=== PATIENT | female | born 1995 | race African-American/Black ===

== ENCOUNTER 2018-03-11 21:45 | Emergency (ER) | payer BC ==
[~2018-03-11] VITALS: Ht 162.6 cm; Wt 59.2 kg
[2018-03-11 22:05] VITALS: TEMP 36.9; Ht 162.6 cm; Wt 59.2 kg
[2018-03-11] MEDS ORDERED: ONDANSETRON INJ 2 MG/ML 2 ML VIAL IV STA (22:16)
[2018-03-11] MEDS ORDERED: ONDANSETRON INJ 2 MG/ML 2 ML VIAL ONE (22:18)
[2018-03-11] MEDS ORDERED: SODIUM CHLORIDE 0.9% 1000ML 2,000 ML IV STA (22:50)
[2018-03-11] MEDS ORDERED: HYDROmorphone INJ 0.5 MG/0.5 ML SYR IV STA (23:09)
[2018-03-11 23:10] LABS: BASO % 0.3 %; BASO ABS # 0.02 K/uL (0-0.2); EOS % 1.9 %; EOS ABS # 0.11 K/uL (0-0.5); HEMATOCRIT 38.7 % (37-47); HEMOGLOBIN 13.4 g/dL (12.0-16.0); IG# 0.01 K/uL (0.00-0.02); LYMPH % 15.3 %; MEAN CELL VOLUME 92.8 fL (80-100); MEAN CORPUSCULAR HEMOGLOBIN 32.1 pg (25-34); MEAN CORPUSCULAR HGB CONC 34.6 g/dl (32-36); MEAN PLATELET VOLUME 10.3 fL (7.4-10.4); MONO % 2.9 %; MONO ABS # 0.17 K/uL (0.11-0.59); NEUT % 79.4 %; NEUT ABS # 4.68 K/uL (1.4-6.5); PLATELET COUNT 267 K/uL (130-400); RED CELL DISTRIBUTION WIDTH CV 12.1 % (11.5-14.5); WHITE BLOOD COUNT 5.89 K/uL (4.8-10.8)
[2018-03-11] MEDS ORDERED: ETON1IMP2 (23:13)
[2018-03-11] MEDS ORDERED: IBUP-1050 PO (23:13)
[2018-03-11 23:29] LABS: ALBUMIN 3.7 gm/dl (3.4-5.0); CREATININE 0.89 mg/dl (0.60-1.20); POTASSIUM 3.7 mmol/L (3.5-5.1)
[2018-03-11 23:32] LABS: TOTAL PROTEIN 8.2 gm/dl (6.4-8.2)
--- NOTE | 2018-03-11 23:56 | EMERGENCY ROOM VISIT NOTE ---
History Report prepared by Diamondibabeba: Dylan De La Fuente Under the Supervision of: Dr. Lety Armenta M.D. First contact with patient: 22:49 Chief Complaint: ABDOMINAL PAIN Stated Complaint: SEVERE STOMACH PAINS, VOMITING History of Present Illness The patient is a 22 year old female who presents to the Emergency Room with complaints of constant abdominal pain that started this morning. She rates her pain as an 8/10 in severity. She reports that she developed abdominal pain first this morning. The patient states she then started to vomit intermittently throughout the day. She states whenever she would try to eat something, she would have an episode of emesis right after. The patient denies , diarrhea, abdominal surgery, and hematemesis. She states her last bowel movement today and reports it was normal. Source of History: patient Onset: this morning Position: abdomen Symptom Intensity: 8/10 Timing: constant Modifying Factors (Worsening): eating Associated Symptoms: + vomiting, No diarrhea Review of Systems See HPI for pertinent positives & negatives. A total of 10 systems reviewed and were otherwise negative. Past Medical & Surgical Medical Problems: (1) Arachnoid cyst Surgical Problems: (1) H/O breast biopsy Family History Cancer Diabetes mellitus Lung disease Seizures Social History Smoking Status: Current Some Day Smoker (Hookah once a week) Smokeless Tobacco Use: No Alcohol Use: occasionally Drug Use: none Marital Status: in relationship Housing Status: lives with roommate Occupation Status: [employer] Current/Historical Medications Scheduled Etonogestrel (Nexplanon), 1 DOSE CONTINOUS Scheduled PRN Ibuprofen (Advil), 200-600 MG PO Q4H PRN for Pain or Fever Allergies Uncoded Allergies: CHERRIES (Allergy, Severe, itchy swelling throat, 03/11/18) PEACHES (Allergy, Severe, itchy swelling throat, 03/11/18) Physical Exam Vital Signs Date Time Temp Pulse Resp B/P (MAP) Pulse Ox O2 Delivery O2 Flow Rate FiO2 03/12/18 01:28 82 16 114/61 97 03/12/18 00:44 87 16 124/66 98 Room Air 03/11/18 23:22 81 20 110/72 100 Room Air 03/11/18 22:05 36.9 121 18 103/67 93 Room Air Physical Exam Vital signs reviewed. General: Well-appearing 22 year old female, in no significant distress. HEENT: No scleral icterus, PERRLA, neck supple. Atraumatic. Cardiovascular: Tachycardic rate and regular rhythm, no extra sounds. Pulmonary: Clear to auscultation bilaterally, normal work of breathing. Abdomen: Soft, mild diffuse tenderness greatest around the umbilicus, nondistended, positive bowel sounds. Musculoskeletal: Atraumatic, no peripheral edema. Neurologic: Patient awake alert and oriented x 3 Skin: Warm, dry, no rash Medical Decision & Procedures ER Provider Diagnostic Interpretation: Radiology results as stated below per my review and radiologist interpretation: CT ABDOMEN & PELVIS with contrast: Mild prominence of the bladder wall may be accentuated by decompression. Please correlate with urinalysis if concerned for cystitis. Excreting contrast in the renal collecting systems. No hydronephrosis. Normal appendix. No bowel obstruction or inflammation. Small amount of free fluid in the cul-de-sac may be physiologic. Radiologist: Rajeev Castro M.D. Laboratory Results 03/11/18 23:01 Red Blood Count 4.17, Mean Corpuscular Volume 92.8, Mean Corpuscular Hemoglobin 32.1, Mean Corpuscular Hemoglobin Concent 34.6, Mean Platelet Volume 10.3, Neutrophils (%) (Auto) 79.4, Lymphocytes (%) (Auto) 15.3, Monocytes (%) (Auto) 2.9, Eosinophils (%) (Auto) 1.9, Basophils (%) (Auto) 0.3, Neutrophils # (Auto) 4.68, Lymphocytes # (Auto) 0.90, Monocytes # (Auto) 0.17, Eosinophils # (Auto) 0.11, Basophils # (Auto) 0.02 03/11/18 23:01 Test 03/11/18 23:01 03/11/18 23:30 White Blood Count 5.89 K/uL (4.8-10.8) Red Blood Count 4.17 M/uL (4.2-5.4) Hemoglobin 13.4 g/dL (12.0-16.0) Hematocrit 38.7 % (37-47) Mean Corpuscular Volume 92.8 fL (80-100) Mean Corpuscular Hemoglobin 32.1 pg (25-34) Mean Corpuscular Hemoglobin Concent 34.6 g/dl (32-36) Platelet Count 267 K/uL (130-400) Mean Platelet Volume 10.3 fL (7.4-10.4) Neutrophils (%) (Auto) 79.4 % Lymphocytes (%) (Auto) 15.3 % Monocytes (%) (Auto) 2.9 % Eosinophils (%) (Auto) 1.9 % Basophils (%) (Auto) 0.3 % Neutrophils # (Auto) 4.68 K/uL (1.4-6.5) Lymphocytes # (Auto) 0.90 K/uL (1.2-3.4) Monocytes # (Auto) 0.17 K/uL (0.11-0.59) Eosinophils # (Auto) 0.11 K/uL (0-0.5) Basophils # (Auto) 0.02 K/uL (0-0.2) RDW Standard Deviation 41.0 fL (36.4-46.3) RDW Coefficient of Variation 12.1 % (11.5-14.5) Immature Granulocyte % (Auto) 0.2 % Immature Granulocyte # (Auto) 0.01 K/uL (0.00-0.02) Anion Gap 7.0 mmol/L (3-11) Est Creatinine Clear Calc Drug Dose 87.1 ml/min Estimated GFR () 108.1 Estimated GFR (Non- 93.3 BUN/Creatinine Ratio 18.1 (10-20) Calcium Level 9.0 mg/dl (8.5-10.1) Total Bilirubin 0.6 mg/dl (0.2-1) Aspartate Amino Transf (AST/SGOT) 16 U/L (15-37) Alanine Aminotransferase (ALT/SGPT) 19 U/L (12-78) Alkaline Phosphatase 73 U/L (45-117) Total Protein 8.2 gm/dl (6.4-8.2) Albumin 3.7 gm/dl (3.4-5.0) Globulin 4.5 gm/dl (2.5-4.0) Albumin/Globulin Ratio 0.8 (0.9-2) Lipase 82 U/L (73-393) Urine Color YELLOW Urine Appearance CLEAR (CLEAR) Urine pH 7.0 (4.5-7.5) Urine Specific [place] 1.018 (1.000-1.030) Urine Protein NEG (NEG) Urine Glucose (UA) NEG (NEG) Urine Ketones 1+ (NEG) Urine Occult Blood 1+ (NEG) Urine Nitrite NEG (NEG) Urine Bilirubin NEG (NEG) Urine Urobilinogen NEG (NEG) Urine Leukocyte Esterase NEG (NEG) Urine WBC (Auto) 0 /hpf (0-5) Urine RBC (Auto) 0-4 /hpf (0-4) Urine Hyaline Casts (Auto) 1-5 /lpf (0-5) Urine Epithelial Cells (Auto) 10-20 /lpf (0-5) Urine Bacteria (Auto) NEG (NEG) Urine Test NEG (NEG) Laboratory results per my review. Medications Administered Medications (Trade) Dose Ordered Sig/Aracely Route Start Time Stop Time Status Last Admin Dose Admin Ondansetron HCl (Zofran Inj) 4 mg NOW STAT IV 03/11/18 22:16 03/11/18 22:18 DC 03/11/18 22:26 4 MG Sodium Chloride 2,000 ml @ 999 mls/hr Q2H1M STAT IV 03/11/18 22:50 03/12/18 00:50 DC 03/11/18 22:50 999 MLS/HR Hydromorphone HCl (Dilaudid Inj) 0.5 mg NOW STAT IV 03/11/18 23:09 03/11/18 23:12 DC 03/11/18 23:29 0.5 MG Hydromorphone HCl (Dilaudid Inj) 1 mg NOW STAT IV 03/12/18 00:33 03/12/18 00:34 DC 03/12/18 00:48 1 MG Ondansetron HCl (ZOFRAN ODT 4MG Home Pack) 1 homepack UD ONCE PO 03/12/18 01:15 03/12/18 01:16 DC 03/12/18 01:25 1 HOMEPACK ED Course 2216: Ordered Zofran Injection 4 mg IV. 2250: Ordered Sodium Chloride 2000 ml @ 999 mls/hr IV. 2305: Past medical records reviewed. The patient was evaluated in room C01B. A complete history and physical examination was performed. 2309: Ordered Dilaudid Injection 0.5 mg IV. 0033: Ordered Dilaudid Injection 1 mg IV. 0115: Ordered Ondansetron HCl 1 homepack PO. Medical Decision Differential diagnosis: Etiologies such as appendicitis, diverticulitis, PUD, biliary pathology, UTI, pancreatitis, obstruction, mesenteric ischemia, aortic pathology, infections, inflammatory bowel disease, renal colic, as well as others were entertained. This pt was evaluated and appeared to be in no distress. IV access was obtained and lab work was drawn. Pt was hydrated with NSS, given IV dilaudid and zofran. Lab work is fairly unrevealing. CT scan of abd/pelvis reveals no acute appy, no evidence of acute inflammatory findings. Pt was d/c with zofran HP and asked to f/u with PCP this week. She will return to the ED for worsening of symptoms or any medical concerns. Medication Reconcilliation Current Medication List: was personally reviewed by me Blood Pressure Screening Patient's blood pressure: Normal blood pressure Impression Primary Impression: Vomiting Additional Impression: Periumbilical abdominal pain Scribe Attestation The scribe's documentation has been prepared under my direction and personally reviewed by me in its entirety. I confirm that the note above accurately reflects all work, treatment, procedures, and medical decision making performed by me. Departure Information Dispostion Home / Self-Care Referrals No Doctor, Assigned (PCP) Forms HOME CARE DOCUMENTATION FORM, IMPORTANT VISIT INFORMATION Patient Instructions My [facility] [place] [facility] Prep Additional Instructions Diagnosis: Vomiting Zofran 4 mg ODT every 6 hours as needed for nausea. Clear liquids for 12-24 hours. Follow up with your doctor this week for reevaluation. Return to the ED for worsening of symptoms or any medical concerns. Problem Qualifiers
[2018-03-12] MEDS ORDERED: OPTIRAY 320 IV PRN
[2018-03-12] MEDS ORDERED: HYDROmorphone INJ 1 MG/ML SYR IV STA (00:33)
[2018-03-12] MEDS ORDERED: ONDANSETRON HOME PACK 4MG OD TAB PO ONE (01:15)
[2018-03-12 01:28] VITALS: BP 114/61; PULSE 82; O2SAT 97
--- NOTE | 2018-03-12 07:26 | DIAGNOSTIC IMAGING REPORT ---
CT SCAN OF THE ABDOMEN AND PELVIS WITH IV CONTRAST CLINICAL HISTORY: Lower abdominal pain. Vomiting. COMPARISON STUDY: No priors. TECHNIQUE: Following the IV administration of 93 cc of Optiray 320, CT scan of the abdomen and pelvis is performed from the lung bases to the proximal femora. Images are reviewed in the axial, sagittal, and coronal planes. IV contrast was administered without complication. A dose lowering technique was utilized adhering to the principles of ALARA. CT DOSE: 257.07 mGy.cm FINDINGS: Lung bases: The heart is normal in size and without pericardial effusion. The lung bases are clear. Liver: The contrast-enhanced liver is normal in size, contour, and attenuation. There is no intrahepatic biliary ductal dilatation. The hepatic veins and portal veins are patent. Gallbladder: Unremarkable. Spleen: Normal in size and attenuation. Pancreas: Unremarkable. Adrenal glands: Unremarkable. Kidneys: The contrast enhanced kidneys are normal in size and without hydronephrosis. The kidneys enhance symmetrically. Abdominal vasculature: The abdominal aorta is normal in course and caliber. Bowel: The small bowel and colon are normal in course and caliber. The appendix is well-visualized and normal. Peritoneum: There is no intraperitoneal free air or abdominal ascites. There is a small fat-containing umbilical hernia. Lymphadenopathy: None. Pelvic viscera: The bladder, uterus, and adnexa are normal as visualized. A small volume of free fluid in cul-de-sac is likely within physiologic limits. Skeletal structures: No lytic or blastic lesions are seen. IMPRESSION: 1. There are no acute infectious or inflammatory findings in the abdomen or pelvis. 2. There is a small volume of free fluid in cul-de-sac, nonspecific but likely within physiologic limits. Electronically signed by: Cristian Hopper M.D. 03/12/2018 7:25 AM Dictated Date/Time: 03/12/2018 7:14 AM
== END 2018-03-12 01:30 | disposition home or self-care (01) ==
LOC: C.EDB 21:47 → C.EDC 03-12 01:30
DX: R11.10 Vomiting, unspecified (principal); R10.33 Periumbilical pain; F17.210 Nicotine dependence, cigarettes, uncomplicated; Z91.018 Allergy to other foods